=== PATIENT | female | born 1980 | race Caucasian/White ===

== ENCOUNTER 2024-10-01 12:34 | Emergency (ER) | payer SELFPAY ==
[2024-10-01 12:42] VITALS: PULSE 74; RESP 18; O2SAT 99
== END 2024-10-01 14:30 | disposition left against medical advice (07) ==
LOC: ER 12:34
DX: Z76.0 Encounter for issue of repeat prescription (principal); Z53.21 Procedure and treatment not carried out due to patient leaving prior to being seen by health care provider